=== PATIENT | male | born 1995 | race African-American/Black ===

== ENCOUNTER 2019-08-17 16:14 | Emergency (ER) | payer OTHER ==
[~2019-08-17] VITALS: Ht 182.9 cm; Wt 132.1 kg
--- NOTE | 2019-08-17 16:43 | PHYS DOC ---
Past History Past Medical History: Asthma, Other (G6PD DEFICIENCY) Past Surgical History: Other (SHOULDER SURGERY) Smoking: Non-smoker Adult General Chief Complaint Chief Complaint: CHEST PAIN HPI HPI Patient is a 24-year-old male who presented to ER today for evaluation of substernal chest pain that started this morning when he woke up. Patient had a shoulder operation on about 2 weeks ago. Patient denied any fever or cough. Patient denies history hypertension, no history of blood clot disorder, no history of diabetes. Patient is obese. Patient denies any history of smoking. Patient'S mom had history of coronary artery disease. he described the pain as pressure-like. Patient denies any chest pain at this time. Review of Systems Review of Systems aLL OTHER ros IS NEGATIVE UNLESS OTHERWISE NOTED IN hpi Positive for chest pain, NO fever, no cough, NO trouble breathing. Physical Exam Physical Exam See above Constitutional: Well developed, well nourished, no acute distress, non-toxic appearance. [] HENT: Normocephalic, atraumatic, bilateral external ears normal, oropharynx moist, no oral exudates, nose normal. [] Eyes: PERRLA, EOMI, conjunctiva normal, no discharge. [] Neck: Normal range of motion, no tenderness, supple, no stridor. [] Cardiovascular:Heart rate regular rhythm, no murmur [] Lungs & Thorax: Bilateral breath sounds clear to auscultation [] Abdomen: Bowel sounds normal, soft, no tenderness, no masses, no pulsatile masses. [] Skin: Warm, dry, no erythema, no rash. [] Back: No tenderness, no CVA tenderness. [] Extremities: No tenderness, no cyanosis, no clubbing, ROM intact, no edema. [] Neurologic: Alert and oriented X 3, normal motor function, normal sensory function, no focal deficits noted. [] Psychologic: Affect normal, judgement normal, mood normal. [] EKG EKG EKG was done at 1630, heart rate of 72 bpm, normal sinus rhythm, no ST segment elevation, and some T-wave inversion in V2, V3, V4, V5 Radiology/Procedures Radiology/Procedures [][address] [address] IMAGING REPORT Signed PATIENT: EZEQUIEL HUANG ACCOUNT: [id number] : 1995 LOCATION: ER AGE: 24 SEX: M EXAM STATUS: REG ER ORD. PHYSICIAN: MITESH FISHER DO REASON: CHEST PAIN PROCEDURE: PORTABLE CHEST 1V Examination: PORTABLE CHEST 1V History: Chest pain Comparison/Correlation: None Findings: Frontal view chest was obtained. Heart size are normal. No pneumothorax. Right lung field is clear. Evaluation of the left lower lung field is limited due to underpenetrated technique. No definite effusion. No definite infiltrate. Bony structures are grossly unremarkable other than mild dextroconvexity of the thoracic spine. Impression: No definite infiltrate although evaluation is limited in the left basal retrocardiac region laterally. Consider follow-up two-view chest x-ray exam for more definitive assessment. Electronically signed by: Cyrus Addison MD (08/17/2019 4:58 PM) [facility] DICTATED AND SIGNED BY: CYRUS ADDISON MD DATE: 08/17/19 8441 CC: PCP,LANA; MITESH FISHER DO ~ Course & Med Decision Making Course & Med Decision Making Pertinent Labs and Imaging studies reviewed. (See chart for details) Patient is a 24-year-old male who underwent recent left shoulder operation, presented to ER today for evaluation of chest pain, CTA OF chest did not show any PE or any infiltration. Patient had low risk factor for having coronary artery disease, lab work was normal, EKG did not show ST elevation. Patient will be discharged home. He is instructed to follow with her family doctor for further evaluation. Dragon Disclaimer Dragon Disclaimer This electronic medical record was generated, in whole or in part, using a voice recognition dictation system. Departure Departure: Impression: Primary Impression: Chest pain Disposition: HOME, SELF-CARE Condition: STABLE Referrals: PCP,LANA (PCP) FOLLOW UP WITH YOUR FAMILY DOCTOR FOR REELUATION IF YOU ARE NOT GETTING BETTER. Patient Instructions: Chest Pain (Nonspecific) Additional Instructions: Thank you for visiting our Emergency Department. We appreciate you trusting us with your care. If any additional problems come up don't hesitate to return to visit us. Please follow up with your primary care provider so they can plan additional care if needed and know about the problem that you had. If symptoms worsen come back to the Emergency Department. Any concerning symptoms that start such as chest pain, shortness of air, weakness or numbness on one side of the body, running high fevers or any other concerning symptoms return to the ER. HEART Score for Chest Pain PTs The HEART Score for CP Pts HEART Score for Chest Pain: HEART Score for Chest Pain Response (Comments) Value History Slighlty/Non-Suspicious 0 ECG Normal 0 Age < 45 0 Risk Factors 1 or 2 Risk Factors 1 Troponin < Normal Limit 0 Total 1 Risk Factors: Risk Factors: DM, Current or recent (<one month) smoker, HTN, HLP, family history of CAD, obesity. Risk Scores: Score 0 - 3: 2.5% MACE over next 6 weeks - Discharge Home Score 4 - 6: 20.3% MACE over next 6 weeks - Admit for Clinical Observation Score 7 - 10: 72.7% MACE over next 6 weeks - Early Invasive Strategies MITESH FISHER DO Aug 17, 2019 16:43
[2019-08-17] MEDS ORDERED: IV NORMAL SALINE 1,000ML 1,000 ML IV ONE (17:00)
[2019-08-17 17:01] LABS: BASO % 0 % (0-3); EOS # 0.1 x10^3/uL (0.0-0.7); EOS % 1 % (0-3); HEMATOCRIT 41.6 % (39.0-53.0); LYMPH # 2.3 x10^3/uL (1.0-4.8); LYMPH % 40 % (24-48); MEAN CORPUSCULAR HEMOGLOBIN 31 pg (25-35); MEAN CORPUSCULAR HGB CONC 34 g/dL (31-37); MEAN CORPUSCULAR VOLUME 92 fL (79-100); MONO # 0.4 x10^3/uL (0.0-1.1); MONO % 8 % (0-9); NEUT # 2.9 x10^3uL (1.8-7.7); NEUT % 51 % (31-73); PLATELET COUNT 258 x10^3/uL (140-400); RED BLOOD COUNT 4.51 x10^6/uL (4.30-5.70); RED CELL DISTRIBUTION WIDTH 12.6 % (11.5-14.5); WHITE BLOOD COUNT 5.7 x10^3/uL (4.0-11.0)
--- NOTE | 2019-08-17 17:01 | RAD ---
Examination: PORTABLE CHEST 1V History: Chest pain Comparison/Correlation: None Findings: Frontal view chest was obtained. Heart size are normal. No pneumothorax. Right lung field is clear. Evaluation of the left lower lung field is limited due to underpenetrated technique. No definite effusion. No definite infiltrate. Bony structures are grossly unremarkable other than mild dextroconvexity of the thoracic spine. Impression: No definite infiltrate although evaluation is limited in the left basal retrocardiac region laterally. Consider follow-up two-view chest x-ray exam for more definitive assessment. Electronically signed by: Cyrus Wright MD (08/17/2019 4:58 PM) [facility]
[2019-08-17 17:08] LABS: CALCIUM 9.1 mg/dL (8.5-10.1); CREATININE 1.2 mg/dL (0.7-1.3); POTASSIUM 3.8 mmol/L (3.5-5.1)
[2019-08-17] MEDS ORDERED: IOHEXOL 350 MG/ML 100 ML VIAL. IV ONE (17:15)
[2019-08-17 17:23] LABS: ALBUMIN/GLOBULIN RATIO 1.1 (1.0-1.7); MAGNESIUM 1.7 mg/dL (1.8-2.4); TOTAL BILIRUBIN 0.7 mg/dL (0.2-1.0); TOTAL PROTEIN 7.6 g/dL (6.4-8.2)
--- NOTE | 2019-08-17 17:40 | EKG ---
[address] [address] Test Date: 2019-08-17 Test Time: 16:29:07 Pat Name: EZEQUIEL HUANG Department: Room: Gender: M [employer]: : 1995 Requested By: MITESH FISHER Order Number: [id number] Reading MD: Measurements Intervals [place] Rate: 72 P: 42 ND: 158 QRS: 74 QRSD: 96 T: 41 QT: 362 QTc: 398 Interpretive Statements SINUS RHYTHM QRS(T) CONTOUR ABNORMALITY CONSIDER INFERIOR MYOCARDIAL DAMAGE T ABNORMALITY IN ANTERIOR LEADS ABNORMAL ECG RI6.01 No previous ECG available for comparison
--- NOTE | 2019-08-17 17:42 | RAD ---
CT ANGIOGRAPHY CHEST INDICATION: Chest pain, dyspnea. Comparison: None. TECHNIQUE: Following the uneventful administration of intravenous contrast, 75 cc of Omnipaque 350, axial CT sections were obtained through the lungs and upper abdomen. Multiplanar reconstructions and MIP images were obtained. PQRS compliance statement: One or more of the following individualized dose reduction techniques were utilized for this examination: 1. Automated exposure control 2. Adjustment of the mA and/or kV according to patient size 3. Use of iterative reconstruction technique FINDINGS: Pulmonary arteries: No evidence of pulmonary thromboembolic disease. Lungs and Airways: No pulmonary mass or consolidation. No abnormality of the central airways. Pleura: The pleural spaces are normal. Heart and Mediastinum: The visualized thyroid is normal in size and attenuation. No axillary or supraclavicular lymphadenopathy. No mediastinal, hilar or retrocrural lymphadenopathy. Cardiomegaly. No pericardial effusion. The great vessels of the thorax are normal. Abdomen: Limited images through the upper abdomen show no abnormality of the visualized organs. Bones and Soft Tissues: No acute osseous abnormality. Symmetric gynecomastia. IMPRESSION: 1. No evidence of pulmonary thromboembolic disease. 2. No pulmonary mass or consolidation. Electronically signed by: Jhonathan Drew MD (08/17/2019 5:39 PM) [id number]
[2019-08-17] MEDS ORDERED: MAGNESIUM SULFATE 2GM 50 ML IV ONE (18:00)
[2019-08-17 20:00] VITALS: BP 136/80
== END 2019-08-17 20:05 | disposition home or self-care (01) ==
LOC: ER 16:14
DX: R07.89 Other chest pain (principal); J45.909 Unspecified asthma, uncomplicated
CPT/HCPCS: 36415; 71045; 71275; 80053; 83690; 83735; 83880; 85025; 85379; 85610; 85730; 93005; 96365; 96366; 99285; J3475; Q9967; J7030